=== PATIENT | female | born 1955 | race Caucasian/White ===

== ENCOUNTER 2018-03-30 20:31 | Emergency (ER) | payer MEDICAID ==
[~2018-03-30] VITALS: Ht 157.5 cm; Wt 81.6 kg
[~2018-03-30 20:31] MED LIST: ACET-1172 PO; AMYL1CAP PO; CETI-101 PO; LEVO150T PO; OMEP20CA4 PO; [UNRECOGNIZED DRUG - CODE] PO
[2018-03-30 20:41] VITALS: BP_SYST 135
--- NOTE | 2018-03-30 22:06 | NUR ---
Patient to ER bed 04 to gown for evaluation. Side rails up.
--- NOTE | 2018-03-30 22:08 | NUR ---
Patient AAOx4, ambulatory with steady gait. Patient states having a main complaint of left hip pain with current pain scale 9/10 at this time. Patient states pain has a sharp sensation and radiates to the left upper leg. Patient states having a main complaint of chronic sciatica. Patient denies any mechanical injury and denies any other complaints.
--- NOTE | 2018-03-30 22:10 | NUR ---
ER Dr. Angulo at bedside examining patient.
[2018-03-30] MEDS ORDERED: ONDANSETRON HCL 4 MG/2 ML VIAL IVP ONE (22:15)
[2018-03-30] MEDS ORDERED: MORPHINE 4 MG/ML INJ. SYRINGE IVP ONE (22:15)
[2018-03-30] MEDS ORDERED: DIPHENHYDRAMINE INJ 50 MG/ML VIAL IVP ONE (22:15)
[2018-03-30 22:25] LABS: BILIRUBIN,URINE NEGATIVE (NEGATIVE); BLOOD, URINE NEGATIVE (NEGATIVE); CLARITY/URINE CLEAR (CLEAR); COLOR,URINE YELLOW (YELLOW); GLUCOSE,URINE NEGATIVE (NEGATIVE); KETONES,URINE NEGATIVE (NEGATIVE); LEUKOCYTE ESTERASE ,URINE NEGATIVE (NEGATIVE); NITRITE, URINE NEGATIVE (NEGATIVE); PH,URINE 5.5 (5.0-8.0); PROTEIN URINE NEGATIVE (NEGATIVE); UROBILINOGEN,URINE 0.2 (0.2-1.0)
[2018-03-30 22:45] LABS: BASOPHILS # (AUTO) 0.1 K/uL (0.0-0.2); BASOPHILS % (AUTO) 1.2 % (0.0-2.0); EOSINOPHILS # (AUTO) 0.4 K/uL (0.0-0.4); EOSINOPHILS % (AUTO) 4.3 % (0.0-4.0); HEMATOCRIT 39.7 % (36-48); HEMOGLOBIN 13.1 g/dL (12.0-16.0); LYMPHOCYTES # (AUTO) 2.9 K/uL (1.0-5.5); MEAN CORPUSCULAR HEMOGLOBIN 30 pg (27-31); MEAN CORPUSCULAR HGB CONC 33 % (32-36); MEAN CORPUSCULAR VOLUME 91 fL (79.0-98.0); MONOCYTES # (AUTO) 0.5 K/uL (0.0-1.0); MONOCYTES % (AUTO) 5.3 % (1.7-9.3); NEUTROPHILS # (AUTO) 4.7 K/uL (1.8-7.7); NEUTROPHILS % (AUTO) 55.2 % (40.0-70.0); PLATELET COUNT (AUTO) 424 K/uL (130-430); RED BLOOD CELL COUNT(AUTO) 4.35 MIL/uL (4.2-6.2); RED CELL DISTRIBUTION WIDTH 14.8 % (9.0-15.0); WHITE BLOOD COUNT (AUTO) 8.6 K/uL (4.8-10.8)
[2018-03-30 22:55] LABS: CALCIUM 9.4 mg/dL (8.4-11.0); CREATININE 1.48 mg/dL (0.55-1.30); POTASSIUM 5.5 mmol/L (3.5-5.1)
[2018-03-30 23:00] LABS: ALBUMIN 4.5 g/dL (3.4-4.8); TOTAL BILIRUBIN 0.2 mg/dL (0.0-1.0)
[2018-03-30 23:07] VITALS: BP_SYST 133
== END 2018-03-30 23:07 | disposition home or self-care (01) ==
LOC: SED 20:31
DX: M25.552 Pain in left hip (principal); M54.30 Sciatica, unspecified side; K21.9 Gastro-esophageal reflux disease without esophagitis; I10 Essential (primary) hypertension; Z86.79 Personal history of other diseases of the circulatory system; Z88.6 Allergy status to analgesic agent; Z88.8 Allergy status to other drugs, medicaments and biological substances; Z79.899 Other long term (current) drug therapy
CPT/HCPCS: 36415; 73502; 80053; 81003; 85025; 96374; 96375; 99285; J1200; J2270; J2405

== ENCOUNTER 2018-04-06 19:48 | Emergency (ER) | payer MEDICAID ==
[~2018-04-06] VITALS: Ht 157.5 cm; Wt 81.6 kg
[2018-04-06 19:55] VITALS: BP_SYST 146
[2018-04-06] MEDS ORDERED: NACL 0.9% 1,000 ML IV ONE (20:19)
[2018-04-06] MEDS ORDERED: MORPHINE 4 MG/ML INJ. SYRINGE IVP ONE (20:30)
[2018-04-06 21:05] LABS: BASOPHILS # (AUTO) 0.1 K/uL (0.0-0.2); BASOPHILS % (AUTO) 0.8 % (0.0-2.0); EOSINOPHILS # (AUTO) 0.3 K/uL (0.0-0.4); EOSINOPHILS % (AUTO) 3.7 % (0.0-4.0); HEMATOCRIT 36.1 % (36-48); HEMOGLOBIN 11.9 g/dL (12.0-16.0); LYMPHOCYTES # (AUTO) 1.9 K/uL (1.0-5.5); LYMPHOCYTES % (AUTO) 23.6 % (20.5-51.5); MEAN CORPUSCULAR HEMOGLOBIN 30 pg (27-31); MEAN CORPUSCULAR HGB CONC 33 % (32-36); MEAN CORPUSCULAR VOLUME 92 fL (79.0-98.0); MONOCYTES # (AUTO) 0.3 K/uL (0.0-1.0); NEUTROPHILS # (AUTO) 5.3 K/uL (1.8-7.7); NEUTROPHILS % (AUTO) 67.9 % (40.0-70.0); PLATELET COUNT (AUTO) 393 K/uL (130-430); RED BLOOD CELL COUNT(AUTO) 3.92 MIL/uL (4.2-6.2); RED CELL DISTRIBUTION WIDTH 14.6 % (9.0-15.0); WHITE BLOOD COUNT (AUTO) 7.9 K/uL (4.8-10.8)
[2018-04-06 21:25] LABS: CALCIUM 9.3 mg/dL (8.4-11.0); POTASSIUM 4.6 mmol/L (3.5-5.1)
[2018-04-06 21:26] LABS: CREATININE 1.41 mg/dL (0.55-1.30)
[2018-04-06 21:30] LABS: ALBUMIN 4.1 g/dL (3.4-4.8); TOTAL BILIRUBIN 0.2 mg/dL (0.0-1.0)
[2018-04-06] MEDS ORDERED: DIPHENHYDRAMINE INJ 50 MG/ML VIAL IVP ONE (21:30)
[2018-04-06 22:30] VITALS: BP_SYST 125
== END 2018-04-06 22:30 | disposition home or self-care (01) ==
LOC: SED 19:48
DX: G89.4 Chronic pain syndrome (principal); M25.552 Pain in left hip; K21.9 Gastro-esophageal reflux disease without esophagitis; I10 Essential (primary) hypertension; Z86.79 Personal history of other diseases of the circulatory system; Z88.6 Allergy status to analgesic agent; Z91.041 Radiographic dye allergy status; Z88.8 Allergy status to other drugs, medicaments and biological substances; Z79.899 Other long term (current) drug therapy; Z90.89 Acquired absence of other organs; Z98.51 Tubal ligation status
CPT/HCPCS: 36415; 80053; 85025; 96361; 96374; 96375; 99284; J1200; J2270; J7030

== ENCOUNTER 2018-04-21 22:31 | Emergency (ER) | payer MEDICAID ==
[~2018-04-21] VITALS: Ht 157.5 cm; Wt 81.6 kg
[2018-04-21 22:40] VITALS: BP_SYST 139
[2018-04-21] MEDS ORDERED: ACETAMINOPHEN 500 MG TABLET PO ONE (23:00)
[2018-04-21 23:15] VITALS: BP_SYST 131
== END 2018-04-21 23:15 | disposition home or self-care (01) ==
LOC: SED 22:31
DX: Z76.5 Malingerer [conscious simulation] (principal); K21.9 Gastro-esophageal reflux disease without esophagitis; I10 Essential (primary) hypertension; G43.909 Migraine, unspecified, not intractable, without status migrainosus; Z88.6 Allergy status to analgesic agent; Z91.041 Radiographic dye allergy status; Z79.899 Other long term (current) drug therapy
CPT/HCPCS: 99282

== ENCOUNTER 2018-07-20 18:05 | Emergency (ER) | payer MEDICAID ==
[~2018-07-20] VITALS: Ht 157.5 cm; Wt 81.6 kg
[2018-07-20 18:12] VITALS: BP_SYST 147
[2018-07-20] MEDS: DEXAMETHASONE SOD PHOSPHATE 10 MG/ML VIAL IM ONE (18:43)
[2018-07-20] MEDS: DIPHENHYDRAMINE INJ 50 MG/ML VIAL IM ONE (18:43)
[2018-07-20] MEDS: MORPHINE SULFATE 10 MG/ML VIAL IM ONE (18:44)
[2018-07-20 19:11] VITALS: BP_SYST 147
== END 2018-07-20 19:11 | disposition home or self-care (01) ==
LOC: SED 18:05
DX: G89.29 Other chronic pain (principal); M25.552 Pain in left hip; R03.0 Elevated blood-pressure reading, without diagnosis of hypertension; K21.9 Gastro-esophageal reflux disease without esophagitis; E11.9 Type 2 diabetes mellitus without complications; I10 Essential (primary) hypertension; Z86.79 Personal history of other diseases of the circulatory system; Z90.49 Acquired absence of other specified parts of digestive tract; Z90.710 Acquired absence of both cervix and uterus; Z88.6 Allergy status to analgesic agent; Z91.041 Radiographic dye allergy status; Z88.8 Allergy status to other drugs, medicaments and biological substances; Z79.899 Other long term (current) drug therapy
CPT/HCPCS: 96372; 99283; J1100; J1200; J2270

== ENCOUNTER 2018-09-23 18:29 | Emergency (ER) | payer MEDICAID ==
[~2018-09-23] VITALS: Ht 157.5 cm; Wt 81.6 kg
[2018-09-23 18:39] VITALS: BP_SYST 139
--- NOTE | 2018-09-23 18:44 | NUR ---
Patient triaged and placed in waiting room. VSS and patient appears in no acute distress at this time. Accompanied by pt, awaiting available bed, and MD notified of need for MSE.
--- NOTE | 2018-09-23 18:46 | NUR ---
Pt brought by self, A&Ox4, pt presents to ER with L hip pain raditing to Left leg, pt denies trauma , pt is ambulatory at this time, afebrile, VS WNL.
--- NOTE | 2018-09-23 18:59 | NUR ---
Dr George at bedside examining patient
--- NOTE | 2018-09-23 19:10 | NUR ---
Report given to Krissy HILL
--- NOTE | 2018-09-23 19:13 | NUR ---
Pt states, "I can take Toradol and benadryl." ER MD made aware. Pt medicated with Toradol IM and benadryl PO per MD order. Tolerated well. Will cont. to monitor.
[2018-09-23] MEDS ORDERED: DIPHENHYDRAMINE HCL 25 MG CAPSULE PO ONE (19:15)
[2018-09-23] MEDS ORDERED: KETOROLAC TROMETHAMINE 30 MG VIAL IM ONE (19:15)
[2018-09-23 19:27] VITALS: BP_SYST 139
--- NOTE | 2018-09-23 19:27 | NUR ---
Note undone in EDM - 09/23/18 at 1934 by [email or web address] Patient given written and verbal discharge instructions and verbalizes understanding. ER MD Dr. George discussed with patient the results and treatment provided. Patient in stable condition. ID arm band removed. Rx of tylenol and ibuprofen given. Patient educated on pain management and to follow up with PMD within 2-3 days. Pain Scale 0/10. Opportunity for questions provided and answered. Medication side effect fact sheet provided.
== END 2018-09-23 19:27 | disposition home or self-care (01) ==
LOC: SED 18:29
DX: M54.32 Sciatica, left side (principal); K21.9 Gastro-esophageal reflux disease without esophagitis; E11.9 Type 2 diabetes mellitus without complications; I10 Essential (primary) hypertension; G43.909 Migraine, unspecified, not intractable, without status migrainosus; Z76.5 Malingerer [conscious simulation]; Z86.79 Personal history of other diseases of the circulatory system; Z91.041 Radiographic dye allergy status; Z88.8 Allergy status to other drugs, medicaments and biological substances; Z79.899 Other long term (current) drug therapy
CPT/HCPCS: 96372; 99283; J1885; Q0163

== ENCOUNTER 2019-07-08 11:46 | Emergency (ER) | payer MEDICAID | END 2019-07-08 12:05 | disposition left against medical advice (07) | LOC: SED 11:46 | DX: M54.9 Dorsalgia, unspecified (principal); Z53.21 Procedure and treatment not carried out due to patient leaving prior to being seen by health care provider ==

== ENCOUNTER 2019-07-26 10:07 | Emergency (ER) | payer MEDICAID ==
[~2019-07-26] VITALS: Ht 162.6 cm; Wt 74.8 kg
--- NOTE | 2019-07-26 10:10 | NUR ---
Patient to ER bed 08 to gown for evaluation. Side rails up.
--- NOTE | 2019-07-26 10:15 | NUR ---
Pt arrived ambulatory, AO4, with c/o of L hip and foot pain. Hx of sciatica and broken toes in L foot
[2019-07-26 10:19] VITALS: BP_SYST 166
--- NOTE | 2019-07-26 10:20 | NUR ---
Dr Donaldson at bedside examining patient
[2019-07-26] MEDS ORDERED: DIPHENHYDRAMINE INJ 50 MG/ML VIAL IM ONE (10:45)
[2019-07-26] MEDS ORDERED: MORPHINE SULFATE 10 MG/ML VIAL IM ONE (10:45)
[2019-07-26 12:00] VITALS: BP_SYST 152
--- NOTE | 2019-07-26 12:00 | NUR ---
Patient given written and verbal discharge instructions and verbalizes understanding. ER MD discussed with patient the results and treatment provided. Patient in stable condition. ID arm band removed. . Patient educated on pain management and to follow up with PMD. Pain Scale 2/10 tolerable for pt. Opportunity for questions provided and answered. Medication side effect fact sheet provided.
== END 2019-07-26 12:00 | disposition home or self-care (01) ==
LOC: SED 10:07
DX: M54.32 Sciatica, left side (principal); I10 Essential (primary) hypertension; E11.9 Type 2 diabetes mellitus without complications; K21.9 Gastro-esophageal reflux disease without esophagitis; Z88.8 Allergy status to other drugs, medicaments and biological substances; Z79.899 Other long term (current) drug therapy
CPT/HCPCS: 96372; 99283; J1200; J2270

== ENCOUNTER 2019-08-02 00:33 | Emergency (ER) | payer MEDICAID ==
--- NOTE | 2019-08-02 01:00 | NUR ---
Called in, no answer
--- NOTE | 2019-08-02 01:00 | NUR ---
Patient left without being seen. No further treatment provided. ER MD aware
== END 2019-08-02 01:00 | disposition left against medical advice (07) ==
LOC: SED 00:33
DX: M54.9 Dorsalgia, unspecified (principal); M79.673 Pain in unspecified foot; Z53.21 Procedure and treatment not carried out due to patient leaving prior to being seen by health care provider

== ENCOUNTER 2019-08-04 01:16 | Emergency (ER) | payer MEDICAID ==
[~2019-08-04] VITALS: Ht 157.5 cm; Wt 81.6 kg
[2019-08-04 01:20] VITALS: BP_SYST 170
--- NOTE | 2019-08-04 01:20 | NUR ---
Patient triaged and placed in waiting room. VSS and patient appears in no acute distress at this time. Accompanied by FAM MEMBER, awaiting available bed, and MD notified of need for MSE.
--- NOTE | 2019-08-04 02:35 | NUR ---
CALLED PT NAME IN THE WR,NO ANSWER.
--- NOTE | 2019-08-04 02:40 | NUR ---
CALLED PT NAME IN THE WR,NO ANSWER.
--- NOTE | 2019-08-04 02:45 | NUR ---
CALLED PT NAME IN THE WR,NO ANSWER.
== END 2019-08-04 02:50 | disposition left against medical advice (07) ==
LOC: SED 01:16
DX: M79.672 Pain in left foot (principal); Z53.21 Procedure and treatment not carried out due to patient leaving prior to being seen by health care provider

== ENCOUNTER 2019-08-09 08:26 | Emergency (ER) | payer MEDICAID ==
[~2019-08-09] VITALS: Ht 157.5 cm; Wt 99.8 kg
[2019-08-09 08:34] VITALS: BP_SYST 195
--- NOTE | 2019-08-09 08:34 | NUR ---
Patient to ER bed 7 to gown for evaluation. Side rails up.
--- NOTE | 2019-08-09 08:35 | NUR ---
Patient is awake, alert, and oriented x4. Patient is complaining of sciatica pain since last night. She presents with left hip pain radiating down to foot 9/10. She denies nausea, vomiting, and diarrhea.
--- NOTE | 2019-08-09 09:25 | NUR ---
ER Dr. Donaldson at bedside examining patient.
[2019-08-09] MEDS ORDERED: HYDROcodone/ACETAMIN 5-325 MG TAB (NORCO/ VICODIN) PO ONE (09:30)
[2019-08-09 09:49] VITALS: BP_SYST 195
--- NOTE | 2019-08-09 09:50 | NUR ---
Patient given written and verbal discharge instructions and verbalizes understanding. ER MD discussed with patient the results and treatment provided. Patient in stable condition. ID arm band removed. Patient educated on pain management and to follow up with PMD. Pain Scale 0/10. Opportunity for questions provided and answered. Medication side effect fact sheet provided.
== END 2019-08-09 09:49 | disposition home or self-care (01) ==
LOC: SED 08:26
DX: M54.30 Sciatica, unspecified side (principal); I51.89 Other ill-defined heart diseases; E11.9 Type 2 diabetes mellitus without complications; K21.9 Gastro-esophageal reflux disease without esophagitis; I10 Essential (primary) hypertension; E07.9 Disorder of thyroid, unspecified; G43.909 Migraine, unspecified, not intractable, without status migrainosus; M25.559 Pain in unspecified hip; K85.90 Acute pancreatitis without necrosis or infection, unspecified; Z79.899 Other long term (current) drug therapy; Z88.8 Allergy status to other drugs, medicaments and biological substances; Z88.6 Allergy status to analgesic agent
CPT/HCPCS: 99282

== ENCOUNTER 2019-11-15 03:41 | Emergency (ER) | payer MEDICAID ==
[~2019-11-15] VITALS: Ht 157.5 cm; Wt 81.6 kg
[2019-11-15 03:50] VITALS: BP_SYST 164
[2019-11-15] MEDS ORDERED: MORPHINE 4 MG/ML INJ. SYRINGE IM ONE (04:15)
[2019-11-15 04:32] VITALS: BP_SYST 167
== END 2019-11-15 04:32 | disposition home or self-care (01) ==
LOC: SED 03:41
DX: G89.29 Other chronic pain (principal); M25.552 Pain in left hip; K21.9 Gastro-esophageal reflux disease without esophagitis; E11.9 Type 2 diabetes mellitus without complications; I10 Essential (primary) hypertension; Z88.8 Allergy status to other drugs, medicaments and biological substances
CPT/HCPCS: 96372; 99283; J2270

== ENCOUNTER 2019-12-04 00:33 | Emergency (ER) | payer MEDICAID ==
[~2019-12-04] VITALS: Ht 154.9 cm; Wt 81.6 kg
[2019-12-04 00:38] VITALS: BP_SYST 156
--- NOTE | 2019-12-04 00:45 | NUR ---
Patient to ER bed 07 for evaluation. Side rails up.
--- NOTE | 2019-12-04 01:03 | NUR ---
Pt presents to ER from home with c/o left hip pain and left foot pain. Pt A&Ox4. Pt states she has history of sciatica. Pt states left hip pain 9/10. Pt states she fell a few months ago and broke three toes in her left foot and was diagnosed with osteomelitis. Pt states left foot pain. Pt states pain 9/10. GCS 15. Pt pupil PERRLA. Pt has no tracheal deviation noted. Pt has clear bilateral breath sounds with no use of accessory muscle use. Pt has strong pulses noted in bilateral legs. Capillary refill is approximately 2 seconds. Pt has full range of movement of bilateral legs. Will continue to monitor. Awaiting MD orders.
--- NOTE | 2019-12-04 01:15 | NUR ---
ER Dr. Noble at bedside examining patient.
[2019-12-04] MEDS ORDERED: DIPHENHYDRAMINE INJ 50 MG/ML VIAL IM ONE (01:45)
[2019-12-04] MEDS ORDERED: KETOROLAC TROMETHAMINE 30 MG VIAL IM ONE (01:45)
--- NOTE | 2019-12-04 01:46 | NUR ---
MD Noble speaking to patient about pain management options. Awaiting MD orders.
--- NOTE | 2019-12-04 02:05 | NUR ---
Pt medicated per MD orders. Pt tolerated well.
[2019-12-04 02:10] VITALS: BP_SYST 166
--- NOTE | 2019-12-04 02:10 | NUR ---
Patient given written and verbal discharge instructions and verbalizes understanding. ER MD Noble discussed with patient the results and treatment provided. Patient in stable condition. ID arm band removed. Rx of Acetaminophen 500mg given. Patient educated on pain management and to follow up with PMD. Pain Scale 7/10. Pt medicated prior to discharge. Opportunity for questions provided and answered. Medication side effect fact sheet provided.
== END 2019-12-04 02:10 | disposition home or self-care (01) ==
LOC: SED 00:33
DX: M70.71 Other bursitis of hip, right hip (principal); I10 Essential (primary) hypertension; E11.9 Type 2 diabetes mellitus without complications; K21.9 Gastro-esophageal reflux disease without esophagitis; Z88.8 Allergy status to other drugs, medicaments and biological substances; Z91.041 Radiographic dye allergy status; Y93.89 Activity, other specified
CPT/HCPCS: 96372; 99284; J1200; J1885

== ENCOUNTER 2019-12-14 08:48 | Emergency (ER) | payer MEDICAID ==
[~2019-12-14] VITALS: Ht 157.5 cm; Wt 81.6 kg
[2019-12-14 09:00] VITALS: BP_SYST 172
--- NOTE | 2019-12-14 09:00 | NUR ---
Patient to ER bed 4 to gown for evaluation. Side rails up.
--- NOTE | 2019-12-14 09:03 | NUR ---
pt arrives from home w/ c/o lower back pain that radiates to the left leg. Pt has no other c/o at the moment
--- NOTE | 2019-12-14 09:10 | NUR ---
ER at bedside examining patient.
[2019-12-14] MEDS ORDERED: DIPHENHYDRAMINE INJ 50 MG/ML VIAL IM ONE (09:15)
[2019-12-14] MEDS ORDERED: MORPHINE 2 MG/ML INJ. SYRINGE IM ONE (09:15)
--- NOTE | 2019-12-14 09:17 | NUR ---
Medicated the pt w/ Morphine and Benadryl IM per MD order. Will reassess
--- NOTE | 2019-12-14 09:22 | NUR ---
VERIFIED PT DOES HAVE A RIDE, SPOUSE AWAITING PTS DISCHARGE IN PARKING LOT
[2019-12-14 09:30] VITALS: BP_SYST 172
--- NOTE | 2019-12-14 09:30 | NUR ---
Patient given written and verbal discharge instructions and verbalizes understanding. ER MD discussed with patient the results and treatment provided. Patient in stable condition. ID arm band removed. Patient educated on pain management and to follow up with PMD. Pain Scale 3/10. Opportunity for questions provided and answered. Medication side effect fact sheet provided.
== END 2019-12-14 09:30 | disposition home or self-care (01) ==
LOC: SED 08:48
DX: G89.29 Other chronic pain (principal); M54.5 Low back pain; I10 Essential (primary) hypertension; E11.9 Type 2 diabetes mellitus without complications; K21.9 Gastro-esophageal reflux disease without esophagitis; Z88.8 Allergy status to other drugs, medicaments and biological substances; Z91.041 Radiographic dye allergy status; Z79.899 Other long term (current) drug therapy
CPT/HCPCS: 96372; 99284; J1200; J2270

== ENCOUNTER 2019-12-24 05:27 | Emergency (ER) | payer MEDICAID, OTHER ==
[~2019-12-24] VITALS: Ht 157.5 cm; Wt 85.7 kg
[2019-12-24 05:30] VITALS: BP_SYST 172
[2019-12-24] MEDS ORDERED: HYDROcodone/ACETAMIN 5-325 MG TAB (NORCO/ VICODIN) PO ONE (05:45)
[2019-12-24 05:54] VITALS: BP_SYST 172
== END 2019-12-24 05:54 | disposition home or self-care (01) ==
LOC: SED 05:27
DX: M25.552 Pain in left hip (principal); G43.909 Migraine, unspecified, not intractable, without status migrainosus; E11.9 Type 2 diabetes mellitus without complications; K21.9 Gastro-esophageal reflux disease without esophagitis; E07.9 Disorder of thyroid, unspecified; I10 Essential (primary) hypertension; Z79.899 Other long term (current) drug therapy
CPT/HCPCS: 99283

== ENCOUNTER 2020-01-23 09:22 | Emergency (ER) | payer OTHER ==
[~2020-01-23] VITALS: Ht 157.5 cm; Wt 81.6 kg
[2020-01-23 09:27] VITALS: BP_SYST 123
--- NOTE | 2020-01-23 09:27 | NUR ---
Patient to ER bed 07 to gown for evaluation. Side rails up.
--- NOTE | 2020-01-23 09:29 | NUR ---
Patient arrived in the ED c/o left-sided sciatica and left 5th toe pain that started yesterday. Denied any chest pain or shortness of breath. Denied any fevers, chills, nausea or vomiting. Patient is alert and oriented x4, respirations even and unlabored, speaking in full sentences, and ambulating with a steady gait. VSS, pain level 9/10. Informed of the approximate wait time. Instructed to notify ED staff for any changes in condition or worsening of symptoms. Patient verbalized understanding.
--- NOTE | 2020-01-23 09:41 | NUR ---
ER Dr. Donaldson at bedside examining patient.
[2020-01-23] MEDS ORDERED: DIPHENHYDRAMINE INJ 50 MG/ML VIAL IM ONE (09:45)
[2020-01-23] MEDS ORDERED: MORPHINE 2 MG/ML INJ. SYRINGE IM ONE (09:45)
--- NOTE | 2020-01-23 10:07 | NUR ---
Patient given written and verbal discharge instructions and verbalizes understanding. ER MD discussed with patient the results and treatment provided. Patient in stable condition. ID arm band removed. No Rx given. Patient educated on pain management and to follow up with PMD. Pain Scale 0/10. Opportunity for questions provided and answered. Medication side effect fact sheet provided.
--- NOTE | 2020-01-23 10:07 | NUR ---
Administered Morphine Sulfate and Benadryl IM as ordered by Dr. Donaldson. Patient tolerated the medications well. See eMAR for details.
[2020-01-23 10:08] VITALS: BP_SYST 123
== END 2020-01-23 10:08 | disposition home or self-care (01) ==
LOC: SED 09:22
DX: M54.32 Sciatica, left side (principal); I10 Essential (primary) hypertension; E11.9 Type 2 diabetes mellitus without complications; K21.9 Gastro-esophageal reflux disease without esophagitis; Z88.8 Allergy status to other drugs, medicaments and biological substances; Z91.041 Radiographic dye allergy status; Z79.899 Other long term (current) drug therapy
CPT/HCPCS: 96372; 99284; J1200; J2270

== ENCOUNTER 2020-02-25 06:55 | Emergency (ER) | payer OTHER ==
[~2020-02-25] VITALS: Ht 157.5 cm; Wt 81.6 kg
[2020-02-25 07:21] VITALS: BP_SYST 137
[2020-02-25] MEDS ORDERED: DIPHENHYDRAMINE INJ 50 MG/ML VIAL IM ONE (08:15)
[2020-02-25] MEDS ORDERED: DIPH-TET-PERTUS Vaccine 0.5 ML VIAL (ADACEL) I.M. ONE (08:15)
[2020-02-25] MEDS ORDERED: MORPHINE 2 MG/ML INJ. SYRINGE IM ONE (08:15)
[2020-02-25 08:40] VITALS: BP_SYST 137
== END 2020-02-25 08:40 | disposition home or self-care (01) ==
LOC: SED 06:55
DX: M54.32 Sciatica, left side (principal); E11.9 Type 2 diabetes mellitus without complications; I10 Essential (primary) hypertension; E07.9 Disorder of thyroid, unspecified; K21.9 Gastro-esophageal reflux disease without esophagitis; G43.909 Migraine, unspecified, not intractable, without status migrainosus; Z86.73 Personal history of transient ischemic attack (TIA), and cerebral infarction without residual deficits; Z79.899 Other long term (current) drug therapy; Z88.6 Allergy status to analgesic agent; Z88.8 Allergy status to other drugs, medicaments and biological substances
CPT/HCPCS: 90471; 90715; 96372; 99284; J1200; J2270

== ENCOUNTER 2020-03-14 04:17 | Emergency (ER) | payer OTHER ==
[~2020-03-14] VITALS: Ht 157.5 cm; Wt 81.6 kg
[2020-03-14 04:20] VITALS: BP_SYST 160
--- NOTE | 2020-03-14 04:32 | NUR ---
Patient to ER bed 4 to gown for evaluation. Side rails up. Report given to Juve HILL.
--- NOTE | 2020-03-14 04:40 | NUR ---
Pt brought in by . Pt states that she has chronic sciatic and lower back pain flare up startin gat 0000 this evening. pt states that she would like some pain medication for managment. Pt denies chest pain, nausea, vomiting, diarrhea, sob, any other medical complaint at this time. Pt resting in bed comfortably.
--- NOTE | 2020-03-14 04:41 | NUR ---
ER at bedside examining patient.
--- NOTE | 2020-03-14 04:50 | NUR ---
Pt found to have visited several hospitals including [facility] in succession prior to visit to [facility]. Pt states that she has recieved decadron and morphine at previous facilities, but felt she needed more morphine. Pt states she would like morphine and benadryl. Pt appears to be lethargic and sedate, affect is flat.
--- NOTE | 2020-03-14 04:51 | NUR ---
ER at bedside speaking with patient.
[2020-03-14] MEDS ORDERED: MORPHINE 2 MG/ML INJ. SYRINGE IM ONE (05:00)
[2020-03-14 05:05] VITALS: BP_SYST 160
--- NOTE | 2020-03-14 05:05 | NUR ---
Patient given written and verbal discharge instructions and verbalizes understanding. ER MD discussed with patient the results and treatment provided. Patient in stable condition. ID arm band removed. No IV No RX given. Patient educated on pain management and to follow up with PMD. Pain Scale 2/10. Opportunity for questions provided and answered. Medication side effect fact sheet provided.
== END 2020-03-14 05:05 | disposition home or self-care (01) ==
LOC: SED 04:17
DX: M25.552 Pain in left hip (principal); E11.9 Type 2 diabetes mellitus without complications; K21.9 Gastro-esophageal reflux disease without esophagitis; I10 Essential (primary) hypertension; E07.9 Disorder of thyroid, unspecified; G43.909 Migraine, unspecified, not intractable, without status migrainosus; Z79.899 Other long term (current) drug therapy; Z88.6 Allergy status to analgesic agent; Z88.8 Allergy status to other drugs, medicaments and biological substances
CPT/HCPCS: 99281

== ENCOUNTER 2020-04-18 09:02 | Emergency (ER) | payer OTHER ==
[~2020-04-18] VITALS: Ht 157.5 cm; Wt 81.6 kg
[2020-04-18 09:20] VITALS: BP_SYST 159
[2020-04-18] MEDS ORDERED: DIPHENHYDRAMINE INJ 50 MG/ML VIAL IM ONE (09:45)
[2020-04-18] MEDS ORDERED: KETOROLAC TROMETHAMINE 60 MG/2 ML VIAL IM ONE ×2 (09:45→09:47)
[2020-04-18] MEDS ORDERED: DIPHENHYDRAMINE INJ 50 MG/ML VIAL ONE (09:48)
[2020-04-18 10:10] VITALS: BP_SYST 159
== END 2020-04-18 10:10 | disposition home or self-care (01) ==
LOC: SED 09:02
DX: G89.29 Other chronic pain (principal); M25.552 Pain in left hip; M54.32 Sciatica, left side; I10 Essential (primary) hypertension; E11.9 Type 2 diabetes mellitus without complications; K21.9 Gastro-esophageal reflux disease without esophagitis; Z79.899 Other long term (current) drug therapy; Z88.8 Allergy status to other drugs, medicaments and biological substances; Z91.041 Radiographic dye allergy status
CPT/HCPCS: 96372; 99284; J1200; J1885

== ENCOUNTER 2020-04-29 08:17 | Emergency (ER) | payer OTHER ==
[~2020-04-29] VITALS: Ht 157.5 cm; Wt 81.6 kg
[2020-04-29 08:22] VITALS: BP_SYST 157
== END 2020-04-29 08:29 | disposition left against medical advice (07) ==
LOC: SED 08:17
DX: M25.552 Pain in left hip (principal); Z53.21 Procedure and treatment not carried out due to patient leaving prior to being seen by health care provider

== ENCOUNTER 2020-05-20 16:33 | Emergency (ER) | payer OTHER ==
[~2020-05-20] VITALS: Ht 157.5 cm; Wt 81.6 kg
[~2020-05-20 16:33] MED LIST changes: -CETI-101 PO; +CETI-80 PO
[2020-05-20 16:34] VITALS: BP_SYST 158
[2020-05-20] MEDS ORDERED: DIPHENHYDRAMINE INJ 50 MG/ML VIAL IM ONE (17:00)
[2020-05-20] MEDS ORDERED: KETOROLAC TROMETHAMINE 60 MG/2 ML VIAL IM ONE (17:00)
[2020-05-20 17:19] VITALS: BP_SYST 152
== END 2020-05-20 17:19 | disposition home or self-care (01) ==
LOC: SED 16:33
DX: G89.29 Other chronic pain (principal); M25.552 Pain in left hip
CPT/HCPCS: 96372; 99284; J1200; J1885

== ENCOUNTER 2020-05-28 02:09 | Emergency (ER) | payer OTHER ==
[~2020-05-28] VITALS: Ht 157.5 cm; Wt 81.6 kg
[2020-05-28 02:15] VITALS: BP_SYST 158
[2020-05-28 02:20] VITALS: BP_SYST 158
[2020-05-28] MEDS ORDERED: ACETAMINOPHEN 500 MG TABLET PO ONE (03:30)
== END 2020-05-28 04:27 | disposition left against medical advice (07) ==
LOC: SED 02:09
DX: M54.5 Low back pain (principal); I10 Essential (primary) hypertension; K21.9 Gastro-esophageal reflux disease without esophagitis; E11.9 Type 2 diabetes mellitus without complications; E03.9 Hypothyroidism, unspecified; G43.909 Migraine, unspecified, not intractable, without status migrainosus; Z79.899 Other long term (current) drug therapy; Z88.6 Allergy status to analgesic agent; Z88.8 Allergy status to other drugs, medicaments and biological substances
CPT/HCPCS: 99282

== ENCOUNTER 2021-04-18 09:31 | Emergency (ER) | payer OTHER ==
[~2021-04-18] VITALS: Ht 157.5 cm; Wt 81.6 kg
[2021-04-18 09:31] VITALS: BP_SYST 155
--- NOTE | 2021-04-18 09:31 | NUR ---
Patient triaged and placed in waiting room. VSS and patient appears in no acute distress at this time. Accompanied by SELF, awaiting available bed, and MD notified of need for MSE.
--- NOTE | 2021-04-18 10:01 | NUR ---
PT HERE FOR LOWER LEFT BACK PAIN, HIP, RADIATING DOWN LEFT LEG TO KNEE. PT ALSO STATES LEFT 5TH DIGIT TOE PAIN. STATES SHE TOOK A NORCO LAST NIGHT AND DID NOT GET RELIEF. PT DENIES ANY INJURY OR TRAUMA, AMBULATORY WITH STEADY GAIT. PT IS WELL KNOWN TO ALL ER STAFF AND DOCTORS, PT IS SEEN IN ER OFTEN. PT STATES SHE IS ALSO UNDER PAIN MANAGEMENT CARE BUT DID NOT CALL HER
--- NOTE | 2021-04-18 10:25 | NUR ---
DR KOHLI OUT TO TRIAGE ROOM TO EVALUATE PT. PT REQUESTING MORPHINE AND BENADRYL IM INJECTION, PT STATES SHE IS ALLERGIC TO TORADOL. ACCORDING TO [facility] REPORT PT WAS SEEN THIS AM AT [facility]. PT DID RECEIVE TORADOL AND BENADRYL INJECTION AT [facility]. EXPLAINED TO PT THAT WE GET PRINT OUT OF RECENT HOSPITAL VISITS AND PT HAS MULTIPLE. PT IS ALSO UNDER PAIN MANAGEMENT CARE. SPOKE WITH PT AT LENGTH ABOUT NEED FOR REHAB AND HER DRUG ADDICTION. PT STATES SHE WANTS TO GO TO REHAB CENTER AND GET CLEAN. WHEN LOOKING AT [facility] REPORT, PT STATES THAT SHE DID NOT SEE [facility] ON LIST AND SAID SHE MAY GO THERE NEXT. ENCOURAGED PT TO GO TO REHAB. AFTER CONVERSATION, PT ELOPED.
--- NOTE | 2021-04-18 10:29 | NUR ---
Brianna reynaga in [facility] - 04/18/21 at [email or web address] KOHLI SPEAKING WITH PT IN TRIAGE ROOM
== END 2021-04-18 10:25 | disposition left against medical advice (07) ==
LOC: SED 09:31
DX: G89.29 Other chronic pain (principal); M25.552 Pain in left hip; M54.32 Sciatica, left side; I10 Essential (primary) hypertension; E11.9 Type 2 diabetes mellitus without complications; K21.9 Gastro-esophageal reflux disease without esophagitis; Z88.8 Allergy status to other drugs, medicaments and biological substances; Z79.899 Other long term (current) drug therapy
CPT/HCPCS: 99281